=== PATIENT | male | born 1965 | race African-American/Black ===

== ENCOUNTER → 2024-10-06 09:53 | Outpatient (CLI) | payer OTHER, SELFPAY | LOC: RESP 10:00 | PROVIDERS: Referring Provider Chiropractor; Visit Provider Chiropractor | DX: J42 Unspecified chronic bronchitis (principal); Z87.891 Personal history of nicotine dependence; Z86.16 Personal history of COVID-19; Z57.2 Occupational exposure to dust; Z57.39 Occupational exposure to other air contaminants; R94.2 Abnormal results of pulmonary function studies | CPT/HCPCS: 94060 ==